=== PATIENT | male | born 1960 | race Caucasian/White ===

== ENCOUNTER 2019-03-15 22:26 | Emergency (ER) | payer OTHER ==
[~2019-03-15] VITALS: Ht 175.2 cm; Wt 77.1 kg
[2019-03-15] MEDS ORDERED: ASPIRIN 81 MG CHEW (CHILDREN'S ASA) ONE (22:33)
[2019-03-15] MEDS ORDERED: NITROGLYCERIN 0.4 MG SL TABS BTL 25'S SL ONE (22:33)
[2019-03-15] MEDS: NITROGLYCERIN 0.4 MG SL TABS BTL 25'S SL PRN ×2 (22:37→23:06)
[2019-03-15 22:41] LABS: BASOPHILS % (AUTO) 0 % (0-10); EOSINOPHILS # (AUTO) 0.1 10^3/uL (0.0-0.3); EOSINOPHILS % (AUTO) 1 % (0-10); HEMATOCRIT 40 % (40-54); HEMOGLOBIN 13.4 G/DL (13.3-17.7); LYMPHOCYTES # (AUTO) 2.2 X 10^3 (1.0-4.0); LYMPHOCYTES % (AUTO) 32 % (12-44); MEAN CORPUSCULAR HEMOGLOBIN 29 PG (25-34); MEAN CORPUSCULAR HGB CONC 33 G/DL (32-36); MEAN CORPUSCULAR VOLUME 88 FL (80-99); MEAN PLATELET VOLUME 9.8 FL (7.4-10.4); MONOCYTES # (AUTO) 0.9 X 10^3 (0.0-1.0); MONOCYTES % (AUTO) 13 % (0-12); NEUTROPHILS # (AUTO) 3.7 X 10^3 (1.8-7.8); NEUTROPHILS % (AUTO) 54 % (42-75); PLATELET COUNT 253 10^3/uL (130-400); RED CELL DISTRIBUTION WIDTH 13.7 % (10.0-14.5); WHITE BLOOD COUNT 6.9 10^3/uL (4.3-11.0)
[2019-03-15] MEDS ORDERED: ASPIRIN 81 MG CHEW (CHILDREN'S ASA) PO ONE (22:45)
[2019-03-15 22:54] LABS: PROTHROMBIN TIME PATIENT 13.4 SEC (12.2-14.7)
[2019-03-15 23:06] LABS: ALANINE AMINOTRANSFERASE 19 U/L (0-55); ALBUMIN 4.3 GM/DL (3.2-4.5); ALKALINE PHOSPHATASE 51 U/L (40-136); AMYLASE 83 U/L (25-125); BILIRUBIN,TOTAL 0.3 MG/DL (0.1-1.0); BUN/CREATININE RATIO 20; CALCIUM 9.4 MG/DL (8.5-10.1); CARBON DIOXIDE 22 MMOL/L (21-32); CHLORIDE 106 MMOL/L (98-107); CREATINE KINASE 150 U/L (30-200); CREATININE SERUM 0.95 MG/DL (0.60-1.30); GFR ESTIMATED > 60; GLUCOSE 110 MG/DL (70-105); LIPASE 45 U/L (8-78); POTASSIUM 4.4 MMOL/L (3.6-5.0); SODIUM 141 MMOL/L (135-145)
--- NOTE | 2019-03-15 23:06 | NUR ---
PATIENT STILL RATING PAIN A 4 WITH INHALATION. 2ND NITRO GIVEN.
--- NOTE | 2019-03-15 23:11 | NUR ---
PAIN REASSESSMENT PATIENT STATES JAYLIN IS A 4 WITH INHALATION AND 0 AT REST. REPORTED TO DR GONZALES RECENT DROP IN BLOOD PRESSURE REPORTED ORDER TO HOLD NITRO AT THIS TIME.
[2019-03-15 23:13] LABS: CREATINE KINASE MB 2.9 NG/ML (<6.6)
[2019-03-16] MEDS ORDERED: IOHEXOL 350 MG/ML 150 ML (OMNIPAQUE 350) VIAL IV ONE (00:15)
[2019-03-16] MEDS ORDERED: NS 100 ML (IVPB) BAG IV ONE (00:15)
[2019-03-16] MEDS ORDERED: HOLD METFORMIN - RECEIVED CONTRAST 20 ML VIAL IV SCH (00:15)
--- NOTE | 2019-03-16 02:26 | ED Chest Pain ---
General Chief Complaint: Chest Pain Stated Complaint: CHEST PAIN Nursing Triage Note: C/O CHEST PRESSURE ALL DAY THEN PAIN BEGAN ONE HOUR AGO. Nursing Sepsis Screen: No Definite Risk Source: patient History of Present Illness Date Seen by Provider: Mar 15, 2019 Time Seen by Provider: 22:25 Initial Comments PT ARRIVES VIA POV--PT IS HERE VISITING FROM [place], DROVE HERE ON Wednesday03/12/19 C/O CHEST PAIN ALL DAY STATES IT HAS BEEN A BAD PRESSURE ALL DAY, THEN AN HOUR AGO IT STARTED BEING A BAD PAIN IN CENTER OF CHEST, RADIATING TO MID BACK AND RIGHT SCAPULA STATES PAIN IS 5/10 AT REST, BUT IS MUCH WORSE WITH DEEP BREATHS OR MOVEMENTS NO SHORTNESS OF BREATH NO COUGH NO FEVER NO PALPITATIONS NO SWEATS NO SWELLING IN LEGS/FEET OR PAIN IN CALVES NO NAUSEA/VOMITING NO RECENT ILLNESS STATES HE WORKED OUT YESTERDAY AND DID NOT HAVE ANY PROBLEMS PT DOES NOT HAVE A HISTORY OF SIMILAR PT STATES HE IS "VERY HEALTHY" AND DOES NOT HAVE ANY MEDICAL PROBLEMS Allergies and Home Medications Allergies Coded Allergies: No Known Drug Allergies (Unverified , 03/15/19) Patient Home Medication List Home Medication List Reviewed: Yes Review of Systems Review of Systems Constitutional: no symptoms reported; No chills, No diaphoresis, No dizziness, No fever EENTM: No Symptoms Reported Respiratory: No Symptoms Reported; Denies Cough, Denies Orthopnea, Denies Shortness of Air, Denies SOA With Exertion Cardiovascular: See HPI, Chest Pain; Denies Edema, Denies Irregular Heart Rate, Denies Lightheadedness, Denies Palpitations, Denies Syncope Gastrointestinal: No Symptoms Reported; Denies Abdominal Pain, Denies Nausea, Denies Vomiting Genitourinary: No Symptoms Reported Musculoskeletal: see HPI, back pain Skin: no symptoms reported Psychiatric/Neurological: No Symptoms Reported; Denies Headache, Denies Numbness, Denies Paresthesia, Denies Seizure, Denies Tingling, Denies Weakness Endocrine: No Symptoms Reported Hematologic/Lymphatic: No Symptoms Reported Past Gvisjwi-Knuxzi-Jwgqwi Hx Patient Social History Alcohol Use: Regular Use (DRINKS ON WEEKENDS) Recreational Drug Use: No Type Used: Smokeless Tobacco (CHEWED TOBACCO, QUIT 15 YEARS AGO, PER PT ON 03/15/19) 2nd Hand Smoke Exposure: No Recent Foreign Travel: No Contact w/Someone Who Travel: No Recent Infectious Disease Expo: No Recent Hopitalizations: No Physical Abuse: No Sexual Abuse: No Mistreated: No Fear: No Immunizations Up To Date Date of Influenza Vaccine: Dec 20, 2018 Seasonal Allergies Seasonal Allergies: No Past Medical History Surgeries: No Respiratory: No Cardiac: No Neurological: No Genitourinary: No Gastrointestinal: Yes (SELF DX "HEARTBURN" --HAS NOT SOUGHT MEDICAL CARE FOR IT. ) Gastroesophageal Reflux Musculoskeletal: No Endocrine: No HEENT: No Cancer: No Psychosocial: No Integumentary: No Blood Disorders: No Physical Exam Vital Signs Vital Signs - First Documented 03/15/19 22:28 Temp 37.0 Pulse 67 Resp 20 B/P (MAP) 150/96 (114) Pulse Ox 97 O2 Delivery Room Air Capillary Refill : Less Than 3 Seconds Height, Weight, BMI Height: '" Weight: lbs. oz. kg; 25.00 BMI Method: General Appearance: No Apparent Distress, WD/WN Neck: Full Range of Motion, Normal Inspection, Non Tender, Supple; No Carotid Bruit, No JVD Respiratory: Chest Non Tender, Lungs Clear, Normal Breath Sounds, No Accessory Muscle Use, No Respiratory Distress Cardiovascular: Regular Rate, Rhythm, No Edema, No Gallop, No JVD, No Murmur, Normal Peripheral Pulses Gastrointestinal: Normal Bowel Sounds, No Organomegaly, No Pulsatile Mass, Non Tender, Soft Extremity: Normal Capillary Refill, Normal Inspection, Normal Range of Motion, Non Tender, No Calf Tenderness, No Pedal Edema Neurologic/Psychiatric: Alert, Oriented x3, No Motor/Sensory Deficits, Normal Mood/Affect, government affairs manager II-XII Norm as Tested Skin: Normal Color, Warm/Dry; No Ecchymosis, No Petechia, No Rash Other comments MILD TENDERNESS TO RIGHT UPPER SCAPULAR AREA. Progress/Results/Core Measures Results/Orders Lab Results Laboratory Tests Test 03/15/19 22:32 03/16/19 01:42 Range/Units White Blood Count 6.9 4.3-11.0 10^3/uL Red Blood Count 4.61 4.35-5.85 10^6/uL Hemoglobin 13.4 13.3-17.7 G/DL Hematocrit 40 40-54 % Mean Corpuscular Volume 88 80-99 FL Mean Corpuscular Hemoglobin 29 25-34 PG Mean Corpuscular Hemoglobin Concent 33 32-36 G/DL Red Cell Distribution Width 13.7 10.0-14.5 % Platelet Count 253 130-400 10^3/uL Mean Platelet Volume 9.8 7.4-10.4 FL Neutrophils (%) (Auto) 54 42-75 % Lymphocytes (%) (Auto) 32 12-44 % Monocytes (%) (Auto) 13 H 0-12 % Eosinophils (%) (Auto) 1 0-10 % Basophils (%) (Auto) 0 0-10 % Neutrophils # (Auto) 3.7 1.8-7.8 X 10^3 Lymphocytes # (Auto) 2.2 1.0-4.0 X 10^3 Monocytes # (Auto) 0.9 0.0-1.0 X 10^3 Eosinophils # (Auto) 0.1 0.0-0.3 10^3/uL Basophils # (Auto) 0.0 0.0-0.1 10^3/uL Prothrombin Time 13.4 12.2-14.7 SEC INR Comment 1.0 0.8-1.4 Activated Partial Thromboplast Time 28 24-35 SEC Sodium Level 141 135-145 MMOL/L Potassium Level 4.4 3.6-5.0 MMOL/L Chloride Level 106 98-107 MMOL/L Carbon Dioxide Level 22 21-32 MMOL/L Anion Gap 13 5-14 MMOL/L Blood Urea Nitrogen 19 H 7-18 MG/DL Creatinine 0.95 0.60-1.30 MG/DL Estimat Glomerular Filtration Rate > 60 BUN/Creatinine Ratio 20 Glucose Level 110 H 70-105 MG/DL Calcium Level 9.4 8.5-10.1 MG/DL Corrected Calcium 9.2 8.5-10.1 MG/DL Magnesium Level 2.0 1.6-2.4 MG/DL Total Bilirubin 0.3 0.1-1.0 MG/DL Aspartate Amino Transf (AST/SGOT) 20 5-34 U/L Alanine Aminotransferase (ALT/SGPT) 19 0-55 U/L Alkaline Phosphatase 51 40-136 U/L Total Creatine Kinase 150 30-200 U/L Creatine Kinase MB 2.9 <6.6 NG/ML Myoglobin 39.5 10.0-92.0 NG/ML Troponin I < 0.028 < 0.028 <0.028 NG/ML B-Type Natriuretic Peptide 18.8 <100.0 PG/ML Total Protein 7.0 6.4-8.2 GM/DL Albumin 4.3 3.2-4.5 GM/DL Amylase Level 83 25-125 U/L Lipase 45 8-78 U/L My Orders Orders - ATTILA GONZALES DO Cbc With Automated Diff (03/15/19 22:29) Magnesium (03/15/19:29) Chest 1 View, Ap/Pa Only (03/15/19:29) Ekg Tracing (03/15/19:29) Comprehensive Metabolic Panel (03/15/19:) Myoglobin Serum (03/15/19:) Protime With Inr (03/15/19:) Partial Thromboplastin Time (03/15/19:) O2 (03/15/19:) Monitor-Rhythm Ecg Trace Only (03/15/19:29) Ed Iv/Invasive Line Start (03/15/19:29) Creatine Kinase (03/15/19:29) Creatine Kinase Mb (03/15/19:29) Lipase (03/15/19:29) Amylase (03/15/19:29) BNP (03/15/19:) Troponin I (03/15/19:29) Aspirin Chewable Tablet (Baby Aspirin Ch (03/15/19 22:45) Nitroglycerin 0.4 Mg Btl 25's (Nitrostat (03/15/19 22:45) Nitroglycerin 0.4 Mg Btl 25's (Nitrostat (03/15/19 22:33) Aspirin Chewable Tablet (Baby Aspirin Ch (03/15/19 22:33) Ct Angio Chest W (03/16/19 00:01) Iohexol Injection (Omnipaque 350 Mg/Ml 1 (03/16/19 00:15) Received Contrast (Hold Metformin- Contr (03/16/19 00:15) Ns (Ivpb) (Sodium Chloride 0.9% Ivpb Bag (03/16/19 00:15) Troponin I (03/16/19 01:28) Ekg Tracing (03/16/19 01:28) Medications Given in ED Current Medications Medications Dose Ordered Sig/Arturo Route Start Time Stop Time Status Last Admin Dose Admin Aspirin 324 mg ONCE ONCE PO 03/15/19 22:45 03/15/19 22:46 DC 03/15/19 22:38 324 MG Iohexol 150 ml ONCE ONCE IV 03/16/19 00:15 03/16/19 00:16 DC 03/16/19 00:15 125 ML Nitroglycerin 1 TAB Q 5 MIN X 3 NEEDED PRN SL 03/15/19 22:45 03/16/19 02:46 DC 03/15/19 23:06 0.4 MG Sodium Chloride 100 ml ONCE ONCE IV 03/16/19 00:15 03/16/19 00:16 DC 03/16/19 00:15 80 ML Vital Signs/I&O 03/15/19 03/15/19 03/16/19 22:28 22:28 02:40 Temp 37.0 Pulse 67 65 Resp 20 22 B/P (MAP) 150/96 (114) 135/96 (114) Pulse Ox 97 97 O2 Delivery Room Air Room Air Blood Pressure Mean: 114 Progress Progress Note : Progress Note GIVEN ASPIRIN AND NTG SL X 2, WITH RESOLUTION OF SYMPTOMS NO DETERIORATION IN PT'S CONDITION RECOMMENDED ADMIT FOR FURTHER CARDIAC TESTING AND REGISTERED SALES ASSISTANT CONSULT, PT DECLINES PT HELD FOR 3 HOUR REPEAT EKG AND TROPONIN, WHICH WERE NORMAL, AND PT HAD NO RETURN OF SYMPTOMS PT STRONGLY ADVISED TO CALL IN AM TO ARRANGE A FOLLOW UP APPOINTMENT WITH HIS IN [place]. PT ADVISED TO RETURN TO NEAREST ER IF HIS SYMPTOMS WORSEN. WILL BE GOING BACK HOME IN A FEW DAYS Initial ECG Impression Date: Mar 15, 2019 Initial ECG Impression Time: 22:30 Initial ECG Rate: 64 Initial ECG Rhythm: Normal Sinus Initial ECG Comparisson: No Previous ECG Available EKG : EKG Time: 01:37 Rate: 63 Rhythm: Normal Sinus ECG Comparisson: Unchanged Diagnostic Imaging Comments CXR--NO ACUTE PROCESS, PENDING RADIOLOGIST REVIEW CT CHEST ANGIOGRAM--NO P.E. OR ACUTE PROCESS, PER [facility] VIA FAX AT [id number] Reviewed: Reviewed by Me Departure Impression Primary Impression: Chest pain Disposition: 01 HOME, SELF-CARE Condition: Improved Departure-Patient Inst. Referrals: NO,LOCAL PHYSICIAN (PCP/Family) Primary Care Physician Patient Instructions: Chest Pain (DC) Add. Discharge Instructions: TAKE 325 MG ASPIRIN DAILY FOLLOW UP WITH YOUR DR NEXT WEEK, CALL THIS AM TO SCHEDULE APPOINTMENT RETURN TO ER IF SYMPTOMS RETURN All discharge instructions reviewed with patient and/or family. Voiced understanding. ATTILA GONZALES DO Mar 16, 2019 02:26
[2019-03-16 02:40] VITALS: BP 135/96
--- NOTE | 2019-03-16 06:19 | Diagnostic Imaging Report ---
INDICATION: Chest pain Portable chest 10:37 PM Heart size and pulmonary vascularity are normal. Lungs are clear. There are no effusions or pneumothoraces. IMPRESSION: Negative chest Dictated by: Dictated on workstation # [id number]
--- NOTE | 2019-03-16 07:15 | Diagnostic Imaging Report ---
PROCEDURE: CT angiography of the chest with contrast. TECHNIQUE: Multiple contiguous axial images were obtained through the chest after uneventful bolus administration of intravenous contrast. 3D reconstructed CTA MIP acquisitions were also performed. Auto Exposure Controls were utilized during the CT exam to meet ALARA standards for radiation dose reduction. DATE: March 16, 2019. COMPARISON: Chest radiograph March 15, 2019. INDICATION: 58-year-old male, chest pain. FINDINGS: There is no identified pulmonary nodule. There is no lung mass. There are dependent predominantly linear opacities in the lower lobes most consistent with atelectasis. There is no additional focal airspace consolidation. There is no pneumothorax. There is no pleural effusion. The more central airways are patent. There is no identified pulmonary embolus. The main pulmonary artery is normal in caliber. The heart is not enlarged. There is no pericardial effusion. There is no identified abnormally enlarged mediastinal, hilar, or axillary lymph node which meets CT size criteria for adenopathy. There is a small probable accessory splenule on axial image 130. Additional evaluation of the imaged portions of the upper abdomen is unremarkable. There is no identified acute bony abnormality. There are degenerative changes of the spine. IMPRESSION: CT CHEST. 1. No identified pulmonary embolus or other acute cardiopulmonary abnormality. Dictated by: Dictated on workstation # [id number]
== END 2019-03-16 02:45 | disposition home or self-care (01) ==
LOC: ER 22:28
DX: R07.89 Other chest pain (principal); K21.9 Gastro-esophageal reflux disease without esophagitis
CPT/HCPCS: 36415; 71045; 71275; 80053; 82150; 82550; 82553; 83690; 83735; 83874; 83880; 84484; 85025; 85610; 85730; 93005; 93041